=== PATIENT | female | born 1930 | race Caucasian/White ===

== ENCOUNTER → 2017-05-17 | Outpatient (CLI) | payer MEDICARE | END | disposition home or self-care (01) | LOC: PCVCCLINIC 15:15 | PROVIDERS: ATTEND Internal Medicine | DX: I48.91 Unspecified atrial fibrillation (principal); E78.5 Hyperlipidemia, unspecified; E03.9 Hypothyroidism, unspecified; Z88.6 Allergy status to analgesic agent; Z88.8 Allergy status to other drugs, medicaments and biological substances; Z79.82 Long term (current) use of aspirin; Z90.710 Acquired absence of both cervix and uterus; Z90.722 Acquired absence of ovaries, bilateral; Z87.891 Personal history of nicotine dependence | CPT/HCPCS: 93005; G0463 ==

== ENCOUNTER → 2017-05-20 | Outpatient (CLI) | payer MEDICARE ==
--- NOTE | 2017-05-20 11:28 | PCVCIMAG ---
APPROVED REPORT Study performed: 05/20/2017 10:03:14 EXAM: Comprehensive 2D, Doppler, and color-flow Echocardiogram Patient Location: Echo lab Status: routine Other Information Study Quality: Good Indications Atrial Fibrillation 2D Dimensions IVSd: 7.10 (7-11mm)LVOT Diam: 19.82 (18-24mm) LVDd: 45.60 mm PWd: 7.27 (7-11mm)Ascending Ao: 37.60 (22-36mm) LVDs: 29.90 (25-40mm) Left Atrium: 37.15 (27-40mm) Aortic Root: 25.51 mm LV Single Plane 4CH: 40.86 % LV Single Plane 2CH: 52.67 %Reynolds's LVEF: 46.76 % Biplane EF: 50.0 % Volumes Left Atrial Volume (Systole) Single Plane 4CH: 99.64 mLSingle Plane 2CH: 79.02 mL LA ESV Index: 47.00 mL/m2 Aortic Valve AoV Peak Corey.: 1.64 m/s AO Peak Gr.: 10.81 mmHgLVOT Max P.14 mmHg LVOT Max V: 0.87 m/s ELAINA Vmax: 1.62 cm2 AI Vmax: 4.07 m/s AI [place]: 2.60 m/s2 AI PHT: 454.85 ms Mitral Valve MV E Max Corey.: 1.21 m/s MV Max Corey.: 5.52 m/s MV Mean Corey.: 4.31 m/s MV PHT: 72.62 ms MVA (PHT): 3.03 cm2 IVRT: 65.74 ms TDI E/Lateral E': 10.08E/Medial E': 12.10 Medial E' Corey.: 0.10 m/s Lateral E' Corey.: 0.12 m/s Pulmonary Valve PV Peak Corey.: 0.81 m/sPV Peak Gr.: 2.62 mmHg Tricuspid Valve TR Peak Corey.: 2.55 m/s TR Peak Gr.: 26.02 mmHg TV Vmax: 0.78 m/sPA Pressure: 33.00 mmHg Left Ventricle The left ventricle is normal size. There is normal LV segmental wall motion. There is normal left ventricular wall thickness. Left ventricular systolic function is low normal. LVEF is 50-55%. This study is not technically sufficient to allow evaluation of the LV diastolic function due to atrial fibrillation. Right Ventricle The right ventricle is normal size. The right ventricular systolic function is normal. Atria Left atrium is moderately dilated. Right atrium is moderately dilated. Aortic Valve Aortic valve is trileaflet. Aortic valve leaflets are mildly thickened without stenosis. Moderate aortic regurgitation. No aortic stenosis. Mitral Valve The mitral valve is normal in structure. Moderate mitral regurgitation. No evidence of mitral valve stenosis. Tricuspid Valve The tricuspid valve is normal in structure. Moderate tricuspid regurgitation with a PA pressure of 33 mmHg. Pulmonic Valve The pulmonary valve is normal in structure. There is no pulmonic valvular regurgitation. Great Vessels The aortic root is normal in size. The ascending aorta is normal in size. IVC is normal in size and collapses with >50% inspiration Pericardium There is no pericardial effusion. There is no pleural effusion. <Conclusion> The left ventricle is normal size. LVEF is 50-55%. Left atrium is moderately dilated. Right atrium is moderately dilated. Aortic valve is trileaflet. Aortic valve leaflets are mildly thickened without stenosis. Moderate aortic regurgitation. The tricuspid valve is normal in structure. The pulmonary valve is normal in structure.
== END | disposition home or self-care (01) ==
LOC: PCVCIMAG 09:50
PROVIDERS: ATTEND Internal Medicine
DX: I08.3 Combined rheumatic disorders of mitral, aortic and tricuspid valves (principal); I48.91 Unspecified atrial fibrillation
CPT/HCPCS: 93306